=== PATIENT | female | born 1940 | race Hispanic/Latino ===

== ENCOUNTER 2022-01-03 15:20 | Outpatient (CLI) | payer MEDICARE | END 2022-01-03 15:21 | disposition home or self-care (01) | LOC: CSHRAD 15:20 | PROVIDERS: ATTEND Family Medicine | DX: S82.001A Unspecified fracture of right patella, initial encounter for closed fracture (principal); W10.8XXA Fall (on) (from) other stairs and steps, initial encounter ==

== ENCOUNTER 2023-01-10 10:19 | Inpatient (IN) | payer MEDICARE ==
[2023-01-10] MEDS ORDERED: Diltiazem 125 MG/25 ML SDV ONE (10:56)
[2023-01-10 11:23] LABS: #Eosinphils 0.1 10x3/uL (0.0-0.5); #Monocytes 0.8 10x3/uL (0.0-1.1); #Neutrophils 3.1 10x3/uL (1.5-8.4); %Basophils 0.2 % (0.0-2.0); %Eosinophils 1.9 % (0.0-6.0); %Monocytes 13.3 % (0.0-10.0); %Neutrophils 53.3 % (40.0-75.0); Hemoglobin 11.5 g/dL (12.0-15.5); Mean Corpuscular HGB CONC 33.2 g/dL (32.0-36.0); Mean Corpuscular Hemoglobin 27.5 pg (27.0-33.0); Mean Corpuscular Volume 82.8 fl (81.6-98.3); Mean Platelet Volume 12.4 fl (7.4-10.4); Platelet Count 149 10x3/uL (150-450); RBC Distribution Width 17.3 % (11.5-14.5); Red Blood Cell (RBC) Count 4.18 10x6/uL (3.90-5.03); White Blood Cell (WBC) Count 5.8 10x3/uL (3.5-10.5)
[2023-01-10 11:31] LABS: ALT (SGPT) 20 U/L (8-55); AST (SGOT) 29 U/L (5-34); Albumin 2.9 g/dL (3.4-4.8); Alkaline Phosphatase 99 U/L (40-110); Anion Gap 17 mmol/L (10-20); BUN (Urea Nitrogen) 25 mg/dL (9.8-20.1); Bilirubin, Total 1.7 mg/dL (0.2-1.2); Calc. Creatinine Clearance 0 mL/min (70-130); Calcium 8.5 mg/dL (7.8-10.44); Carbon Dioxide 20 mmol/L (23-31); Chloride 100 mmol/L (98-107); Estimated GFR 34; Globulin 3.4 g/dL (2.4-3.5); Glucose 107 mg/dL (83-110); Potassium 4.7 mmol/L (3.5-5.1); Protein, Total 6.3 g/dL (5.8-8.1); Sodium 132 mmol/L (136-145)
[2023-01-10 11:54] LABS: CKMB 3.2 ng/mL (0-6.6)
[2023-01-10] MEDS ORDERED: Digoxin 0.5 MG/2 ML AMP ONE (12:49)
[2023-01-10 14:35] LABS: Troponin I 0.073 ng/mL (< 0.028)
[2023-01-10 15:15] VITALS: BMI 21.7
[2023-01-10] MEDS ORDERED: Acetaminophen 650 MG Suppository PR PRN (15:26)
[2023-01-10] MEDS ORDERED: Acetaminophen 325 MG TAB PO PRN (15:26)
[2023-01-10] MEDS ORDERED: Ondansetron ODT 4 MG TAB PO PRN (15:26)
[2023-01-10] MEDS ORDERED: Ondansetron PF 4 MG/2 ML Vial IVP PRN (15:26)
[2023-01-10] MEDS ORDERED: Metoclopramide HCl 10 MG/2 ML VIAL IVP PRN (16:29)
[2023-01-10 18:09] LABS: Troponin I 0.087 ng/mL (< 0.028)
[2023-01-10] MEDS ORDERED: Carvedilol 6.25 MG TAB ONE (18:29)
[2023-01-10] MEDS ORDERED: Digoxin 0.125 MG TAB PO SCH (18:30)
[2023-01-10] MEDS: cefTRIAXone\\ROCEPHIN 1 GM in Sodium Chloride 0.9% 100 ML IVPB SCH (18:38)
[2023-01-10] MEDS: Carvedilol 6.25 MG TAB PO SCH (18:40)
[2023-01-10] MEDS: Sacubitril 24MG/Valsartan 26 MG TAB PO SCH (20:47)
[2023-01-10] MEDS: Doxycycline 100 MG CAP PO SCH (20:48)
[2023-01-10] MEDS: Atorvastatin Calcium 20 MG TAB PO SCH (20:48)
[2023-01-10] MEDS: Apixaban 2.5 MG TAB PO SCH (20:48)
[2023-01-10] MEDS ORDERED: Furosemide 20 MG/2 ML VIAL SLOW IVP SCH (21:00)
[2023-01-10] MEDS ORDERED: Digoxin 0.5 MG/2 ML AMP SLOW IVP SCH (21:00)
[2023-01-11 05:45] LABS: #Eosinphils 0.1 10x3/uL (0.0-0.5); #Monocytes 0.7 10x3/uL (0.0-1.1); #Neutrophils 3.9 10x3/uL (1.5-8.4); %Basophils 0.2 % (0.0-2.0); %Eosinophils 2.1 % (0.0-6.0); %Lymphocytes 23.4 % (18.0-47.0); %Monocytes 11.6 % (0.0-10.0); %Neutrophils 62.5 % (40.0-75.0); Hemoglobin 11.3 g/dL (12.0-15.5); Mean Corpuscular HGB CONC 33.8 g/dL (32.0-36.0); Mean Corpuscular Hemoglobin 27.6 pg (27.0-33.0); Mean Corpuscular Volume 81.7 fl (81.6-98.3); Mean Platelet Volume 12.5 fl (7.4-10.4); Platelet Count 126 10x3/uL (150-450); RBC Distribution Width 17.1 % (11.5-14.5); Red Blood Cell (RBC) Count 4.09 10x6/uL (3.90-5.03); White Blood Cell (WBC) Count 6.2 10x3/uL (3.5-10.5)
[2023-01-11 05:58] LABS: ALT (SGPT) 17 U/L (8-55); AST (SGOT) 26 U/L (5-34); Albumin 2.5 g/dL (3.4-4.8); Alkaline Phosphatase 89 U/L (40-110); Anion Gap 17 mmol/L (10-20); BUN (Urea Nitrogen) 28 mg/dL (9.8-20.1); Bilirubin, Total 1.3 mg/dL (0.2-1.2); Calc. Creatinine Clearance 25 mL/min (70-130); Carbon Dioxide 20 mmol/L (23-31); Chloride 102 mmol/L (98-107); Estimated GFR 38; Globulin 3.3 g/dL (2.4-3.5); Glucose 104 mg/dL (83-110); Protein, Total 5.8 g/dL (5.8-8.1); Sodium 135 mmol/L (136-145)
[2023-01-11] MEDS: Carvedilol 6.25 MG TAB PO SCH (08:22)
[2023-01-11] MEDS: Sacubitril 24MG/Valsartan 26 MG TAB PO SCH ×2 (08:22→22:20)
[2023-01-11] MEDS: Doxycycline 100 MG CAP PO SCH ×2 (08:23→22:21)
[2023-01-11] MEDS: Apixaban 2.5 MG TAB PO SCH ×2 (08:23→22:21)
[2023-01-11] MEDS ORDERED: Digoxin 0.125 MG TAB PO SCH (09:00)
[2023-01-11] MEDS: Furosemide 40 MG/4 ML VIAL SLOW IVP SCH (13:00)
[2023-01-11] MEDS: Carvedilol 12.5 MG TAB PO SCH (16:53)
[2023-01-11] MEDS: cefTRIAXone\\ROCEPHIN 1 GM in Sodium Chloride 0.9% 100 ML IVPB SCH (17:56)
[2023-01-11] MEDS: Atorvastatin Calcium 20 MG TAB PO SCH (22:21)
[2023-01-12 05:28] LABS: #Monocytes 0.7 10x3/uL (0.0-1.1); #Neutrophils 4.9 10x3/uL (1.5-8.4); %Basophils 0.3 % (0.0-2.0); %Lymphocytes 19.4 % (18.0-47.0); %Monocytes 10.5 % (0.0-10.0); %Neutrophils 69.5 % (40.0-75.0); Hemoglobin 11.5 g/dL (12.0-15.5); Mean Corpuscular HGB CONC 33.7 g/dL (32.0-36.0); Mean Corpuscular Hemoglobin 27.4 pg (27.0-33.0); Mean Corpuscular Volume 81.4 fl (81.6-98.3); Mean Platelet Volume 12.7 fl (7.4-10.4); Platelet Count 132 10x3/uL (150-450); RBC Distribution Width 17.6 % (11.5-14.5); Red Blood Cell (RBC) Count 4.19 10x6/uL (3.90-5.03)
[2023-01-12 05:40] LABS: Anion Gap 14 mmol/L (10-20); BUN (Urea Nitrogen) 28 mg/dL (9.8-20.1); Calc. Creatinine Clearance 27 mL/min (70-130); Calcium 7.6 mg/dL (7.8-10.44); Carbon Dioxide 24 mmol/L (23-31); Chloride 102 mmol/L (98-107); Estimated GFR 43; Glucose 106 mg/dL (83-110); Potassium 3.4 mmol/L (3.5-5.1); Sodium 137 mmol/L (136-145)
[2023-01-12] MEDS: Furosemide 40 MG/4 ML VIAL SLOW IVP SCH ×2 (05:42→13:13)
[2023-01-12] MEDS: Apixaban 2.5 MG TAB PO SCH ×2 (08:50→21:23)
[2023-01-12] MEDS: Doxycycline 100 MG CAP PO SCH ×2 (08:50→21:24)
[2023-01-12] MEDS: Sacubitril 24MG/Valsartan 26 MG TAB PO SCH ×2 (08:51→21:23)
[2023-01-12] MEDS: Carvedilol 12.5 MG TAB PO SCH ×2 (08:51→17:54)
[2023-01-12] MEDS: Digoxin 0.125 MG TAB PO SCH (08:51)
[2023-01-12 16:41] LABS: Actual Bicarbonate (HCO3a) 24.4 mEq/L (22-28); Base Excess (BEa) 3.4 mEq/L (-2.0 to +3.0); CO2 Tension 27.1 mmHg (35.0-45.0); Calcium, Ionized (arterial) 1.03 mmol/L (1.12-1.30); Carboxyhemoglobin (COHb) 0.6 gm% (0.0-3.0); Hematocrit-ABG 40 % (36.0-47.0); Hemoglobin (Hb) 13.5 g/dL (12.0-16.0); Potassium - ABG Lab 3.11 mmol/L (3.70-5.30); Puncture Site RBA; pH, Arterial 7.572 (7.35-7.45)
[2023-01-12 16:44] LABS: ALV-art Gradient 56.855 mmHg (0-20)
[2023-01-12] MEDS ORDERED: Furosemide 20 MG/2 ML VIAL SLOW IVP SCH (17:00)
[2023-01-12] MEDS ORDERED: Electrolyte Replacement Protocol 1 EACH FS SCH (17:26)
[2023-01-12] MEDS ORDERED: Potassium Chloride 20 MEQ TAB PO SCH (17:30)
[2023-01-12] MEDS ORDERED: Calcium Carbonate 500 MG ChewTAB PO SCH (17:30)
[2023-01-12] MEDS: cefTRIAXone\\ROCEPHIN 1 GM in Sodium Chloride 0.9% 100 ML IVPB SCH (17:55)
[2023-01-12 19:18] LABS: Phosphorus 4.3 mg/dL (2.3-4.7)
[2023-01-12] MEDS: Atorvastatin Calcium 20 MG TAB PO SCH (21:23)
[2023-01-13 04:55] LABS: #Monocytes 0.6 10x3/uL (0.0-1.1); %Basophils 0.3 % (0.0-2.0); %Eosinophils 0.7 % (0.0-6.0); %Lymphocytes 19.9 % (18.0-47.0); %Monocytes 10.5 % (0.0-10.0); %Neutrophils 68.4 % (40.0-75.0); Hemoglobin 11.8 g/dL (12.0-15.5); Mean Corpuscular HGB CONC 33.8 g/dL (32.0-36.0); Mean Corpuscular Hemoglobin 27.4 pg (27.0-33.0); Mean Platelet Volume 12.4 fl (7.4-10.4); Platelet Count 125 10x3/uL (150-450); RBC Distribution Width 17.6 % (11.5-14.5); Red Blood Cell (RBC) Count 4.31 10x6/uL (3.90-5.03); White Blood Cell (WBC) Count 5.9 10x3/uL (3.5-10.5)
[2023-01-13 04:59] LABS: Anion Gap 11 mmol/L (10-20); BUN (Urea Nitrogen) 24 mg/dL (9.8-20.1); Calc. Creatinine Clearance 30 mL/min (70-130); Calcium 7.5 mg/dL (7.8-10.44); Carbon Dioxide 29 mmol/L (23-31); Chloride 103 mmol/L (98-107); Estimated GFR 49; Glucose 107 mg/dL (83-110); Potassium 3.4 mmol/L (3.5-5.1); Sodium 140 mmol/L (136-145)
[2023-01-13 05:22] LABS: Magnesium 1.7 mg/dL (1.6-2.6)
[2023-01-13] MEDS ORDERED: Potassium Chloride 20 MEQ TAB PO SCH (06:00)
[2023-01-13] MEDS ORDERED: Magnesium 2 GM/50 ML(in water) 2 GM in Premix Bag 1 BAG IVPB SCH ×4 (06:00→12:30)
[2023-01-13] MEDS: Furosemide 40 MG/4 ML VIAL SLOW IVP SCH (06:42)
[2023-01-13 08:20] LABS: ALT (SGPT) 15 U/L (8-55); AST (SGOT) 23 U/L (5-34); Albumin 2.3 g/dL (3.4-4.8); Alkaline Phosphatase 79 U/L (40-110); Bilirubin, Direct 0.4 mg/dL (0.1-0.3); Bilirubin, Total 0.6 mg/dL (0.2-1.2); Protein, Total 5.2 g/dL (5.8-8.1)
[2023-01-13] MEDS: Sacubitril 24MG/Valsartan 26 MG TAB PO SCH ×2 (09:04→20:15)
[2023-01-13] MEDS: Apixaban 2.5 MG TAB PO SCH ×2 (09:04→20:15)
[2023-01-13] MEDS: Digoxin 0.125 MG TAB PO SCH (09:05)
[2023-01-13] MEDS: Carvedilol 12.5 MG TAB PO SCH ×2 (09:05→16:12)
[2023-01-13] MEDS: Doxycycline 100 MG CAP PO SCH ×2 (09:07→20:15)
[2023-01-13] MEDS: Atorvastatin Calcium 20 MG TAB PO SCH (20:15)
[2023-01-14 04:31] LABS: #Eosinphils 0.1 10x3/uL (0.0-0.5); #Monocytes 0.8 10x3/uL (0.0-1.1); #Neutrophils 3.5 10x3/uL (1.5-8.4); %Basophils 0.5 % (0.0-2.0); %Eosinophils 1.2 % (0.0-6.0); %Lymphocytes 28.1 % (18.0-47.0); %Monocytes 12.7 % (0.0-10.0); %Neutrophils 57.3 % (40.0-75.0); Hemoglobin 11.6 g/dL (12.0-15.5); Mean Corpuscular HGB CONC 33.4 g/dL (32.0-36.0); Mean Corpuscular Hemoglobin 27.6 pg (27.0-33.0); Mean Corpuscular Volume 82.5 fl (81.6-98.3); Mean Platelet Volume 11.5 fl (7.4-10.4); Platelet Count 126 10x3/uL (150-450); RBC Distribution Width 17.6 % (11.5-14.5); Red Blood Cell (RBC) Count 4.28 10x6/uL (3.90-5.03); White Blood Cell (WBC) Count 5.9 10x3/uL (3.5-10.5)
[2023-01-14 04:44] LABS: Anion Gap 10 mmol/L (10-20); BUN (Urea Nitrogen) 20 mg/dL (9.8-20.1); Calc. Creatinine Clearance 34 mL/min (70-130); Calcium 7.5 mg/dL (7.8-10.44); Carbon Dioxide 33 mmol/L (23-31); Chloride 100 mmol/L (98-107); Estimated GFR 57; Glucose 96 mg/dL (83-110); Magnesium 2.2 mg/dL (1.6-2.6); Potassium 3.3 mmol/L (3.5-5.1); Sodium 140 mmol/L (136-145)
[2023-01-14] MEDS ORDERED: Furosemide 40 MG TAB PO SCH (07:30)
[2023-01-14] MEDS ORDERED: Potassium Chloride 20 MEQ TAB PO SCH ×4 (08:00→12:45)
[2023-01-14] MEDS: Carvedilol 12.5 MG TAB PO SCH (08:30)
[2023-01-14] MEDS: Digoxin 0.125 MG TAB PO SCH (08:30)
[2023-01-14] MEDS: Sacubitril 24MG/Valsartan 26 MG TAB PO SCH (08:30)
[2023-01-14] MEDS: Apixaban 2.5 MG TAB PO SCH (08:30)
[2023-01-14] MEDS: Doxycycline 100 MG CAP PO SCH (08:31)
[2023-01-14 12:20] LABS: Potassium 3.1 mmol/L (3.5-5.1)
[2023-01-14 12:35] VITALS: BP 93/55; TEMP 97.6
== END 2023-01-14 12:45 | disposition home health service (06) | DRG 308 ==
LOC: CSHERS 10:19 → CSHERHOLD 12:51 → CSHTELE 13:54
PROVIDERS: ADMIT Internal Medicine; ATTEND Internal Medicine
PROC: 4A133R1 Monitoring of Arterial Saturation, Peripheral, Percutaneous Approach (ICD-10-PCS; principal; 2023-01-12)
DX: I48.19 Other persistent atrial fibrillation (principal); I50.23 Acute on chronic systolic (congestive) heart failure; J18.9 Pneumonia, unspecified organism; J96.01 Acute respiratory failure with hypoxia; N17.9 Acute kidney failure, unspecified; I11.0 Hypertensive heart disease with heart failure; I25.10 Atherosclerotic heart disease of native coronary artery without angina pectoris; R53.81 Other malaise; E78.5 Hyperlipidemia, unspecified; E87.6 Hypokalemia; E83.42 Hypomagnesemia; D69.6 Thrombocytopenia, unspecified; F03.90 Unspecified dementia, unspecified severity, without behavioral disturbance, psychotic disturbance, mood disturbance, and anxiety; Z88.7 Allergy status to serum and vaccine; Z79.899 Other long term (current) drug therapy; Z82.49 Family history of ischemic heart disease and other diseases of the circulatory system; Z98.890 Other specified postprocedural states
CPT/HCPCS: 36415; 36600; 71045; 80048; 80053; 80076; 82533; 82553; 82805; 83735; 83880; 84100; 84145; 84439; 84443; 84484; 85025; 93005; 93010; 94760; 94762; 96365; 96375; J0696; J1160; J1940; J2765; J3475; J3490

== ENCOUNTER 2023-02-13 20:15 | Inpatient (IN) | payer MEDICARE ==
[2023-02-13] MEDS ORDERED: Acetaminophen 325 MG TAB PO PRN (20:43)
[2023-02-13] MEDS ORDERED: Guaifenesin DM 100-10/5 ML UDCUP PO PRN (20:43)
[2023-02-13] MEDS ORDERED: Calcium Carbonate 500 MG ChewTAB PO PRN (20:43)
[2023-02-13] MEDS ORDERED: Ondansetron PF 4 MG/2 ML Vial IVP PRN (20:43)
[2023-02-13] MEDS ORDERED: Melatonin 3 MG TAB PO PRN (20:45)
[2023-02-13] MEDS ORDERED: Famotidine/PF 20 mg/2ml Vial SLOW IVP SCH (21:00)
[2023-02-13] MEDS: Sacubitril 24MG/Valsartan 26 MG TAB PO SCH (21:19)
[2023-02-13] MEDS: Apixaban 2.5 MG TAB PO SCH (21:19)
[2023-02-13] MEDS: Atorvastatin Calcium 20 MG TAB PO SCH (21:19)
[2023-02-13 22:19] LABS: Bilirubin Neg (Negative); Blood, Urine 50 (Negative); Glucose, Urine (Dipstick) Normal (Negative); Ketone, Urine Negative (Negative); Leukocyte 500 (Negative); Nitrite Negative (Negative); Protein, Urine (Dipstick) 15 mg/dl (Neg-Trace)
[2023-02-13 22:25] LABS: Clarity Cloudy (Clear)
[2023-02-13 22:29] LABS: Bacteria/HPF 2+ HPF (None Seen); RBC/HPF 0-3 HPF (0-3); Squamous Epithelial 0-3 HPF (0-3)
[2023-02-13] MEDS: cefTRIAXone\\ROCEPHIN 1 GM in Sodium Chloride 0.9% 100 ML IVPB SCH (23:39)
[2023-02-14 05:09] LABS: #Eosinphils 0.1 10x3/uL (0.0-0.5); #Monocytes 0.5 10x3/uL (0.0-1.1); #Neutrophils 2.5 10x3/uL (1.5-8.4); %Basophils 0.6 % (0.0-2.0); %Eosinophils 1.8 % (0.0-6.0); %Lymphocytes 35.1 % (18.0-47.0); %Neutrophils 51.5 % (40.0-75.0); Hemoglobin 12.1 g/dL (12.0-15.5); Mean Corpuscular HGB CONC 33.3 g/dL (32.0-36.0); Mean Corpuscular Hemoglobin 27.6 pg (27.0-33.0); Mean Corpuscular Volume 82.9 fl (81.6-98.3); Mean Platelet Volume 11.8 fl (7.4-10.4); Platelet Count 166 10x3/uL (150-450); RBC Distribution Width 20.2 % (11.5-14.5); Red Blood Cell (RBC) Count 4.38 10x6/uL (3.90-5.03); White Blood Cell (WBC) Count 4.9 10x3/uL (3.5-10.5)
[2023-02-14 05:20] LABS: Anion Gap 13 mmol/L (10-20); BUN (Urea Nitrogen) 21 mg/dL (9.8-20.1); Calc. Creatinine Clearance 42 mL/min (70-130); Calcium 8.4 mg/dL (7.8-10.44); Carbon Dioxide 27 mmol/L (23-31); Chloride 101 mmol/L (98-107); Estimated GFR 83; Glucose 80 mg/dL (83-110); Magnesium 1.7 mg/dL (1.6-2.6); Potassium 3.5 mmol/L (3.5-5.1); Sodium 137 mmol/L (136-145)
[2023-02-14] MEDS: Digoxin 0.125 MG TAB PO SCH (09:08)
[2023-02-14] MEDS: Apixaban 2.5 MG TAB PO SCH ×2 (09:08→20:20)
[2023-02-14] MEDS: Furosemide 20 MG/2 ML VIAL SLOW IVP SCH (09:10)
[2023-02-14] MEDS: Potassium Chloride 20 MEQ TAB PO SCH (09:10)
[2023-02-14] MEDS: Carvedilol 12.5 MG TAB PO SCH ×2 (09:10→17:26)
[2023-02-14] MEDS: Sacubitril 24MG/Valsartan 26 MG TAB PO SCH ×2 (09:10→20:20)
[2023-02-14] MEDS: Metoclopramide HCl 10 MG/2 ML VIAL IVP SCH ×3 (12:05→23:24)
[2023-02-14 12:48] LABS: Digoxin 0.62 ng/mL (0.8-2.0)
[2023-02-14] MEDS: Atorvastatin Calcium 20 MG TAB PO SCH (20:20)
[2023-02-14] MEDS ORDERED: Famotidine/PF 20 mg/2ml Vial SLOW IVP SCH (21:00)
[2023-02-14] MEDS: cefTRIAXone\\ROCEPHIN 1 GM in Sodium Chloride 0.9% 100 ML IVPB SCH (23:24)
[2023-02-15 01:57] VITALS: BMI 19.4
[2023-02-15] MEDS: Metoclopramide HCl 10 MG/2 ML VIAL IVP SCH (05:27)
[2023-02-15] MEDS: Carvedilol 12.5 MG TAB PO SCH (09:25)
[2023-02-15] MEDS: Furosemide 20 MG/2 ML VIAL SLOW IVP SCH (09:25)
[2023-02-15] MEDS: Pantoprazole 40 MG VIAL IVP SCH ×2 (09:25→10:39)
[2023-02-15] MEDS: Digoxin 0.125 MG TAB PO SCH (09:25)
[2023-02-15] MEDS: Sacubitril 24MG/Valsartan 26 MG TAB PO SCH (09:25)
[2023-02-15] MEDS: Potassium Chloride 20 MEQ TAB PO SCH (09:25)
[2023-02-15] MEDS: Apixaban 2.5 MG TAB PO SCH (09:26)
[2023-02-15 13:09] VITALS: BP 104/54; TEMP 97.5
== END 2023-02-15 17:11 | disposition home or self-care (01) | DRG 291 ==
LOC: CSHTELE 20:15
PROVIDERS: ADMIT Student in an Organized Health Care Education/Training Program; ATTEND Internal Medicine
DX: I11.0 Hypertensive heart disease with heart failure (principal); I50.23 Acute on chronic systolic (congestive) heart failure; I48.19 Other persistent atrial fibrillation; N39.0 Urinary tract infection, site not specified; R11.2 Nausea with vomiting, unspecified; R19.7 Diarrhea, unspecified; I42.0 Dilated cardiomyopathy; I25.10 Atherosclerotic heart disease of native coronary artery without angina pectoris; E78.5 Hyperlipidemia, unspecified; I34.0 Nonrheumatic mitral (valve) insufficiency; Z79.01 Long term (current) use of anticoagulants; Z79.899 Other long term (current) drug therapy; Z82.49 Family history of ischemic heart disease and other diseases of the circulatory system; Z83.49 Family history of other endocrine, nutritional and metabolic diseases
CPT/HCPCS: 36415; 71045; 80048; 80053; 80162; 81001; 82550; 83690; 83735; 83880; 84443; 84484; 85025; 87077; 87086; 87186; 93005; 94760; 96374; C9113; J0696; J1940; J2765; J3490; S0028

== ENCOUNTER 2023-03-05 11:40 | Emergency (ER) | payer MEDICARE ==
[2023-03-05 14:42] LABS: #Eosinphils 0.5 10x3/uL (0.0-0.5); #Monocytes 0.6 10x3/uL (0.0-1.1); #Neutrophils 3.5 10x3/uL (1.5-8.4); %Basophils 0.5 % (0.0-2.0); %Eosinophils 8.3 % (0.0-6.0); %Lymphocytes 16.9 % (18.0-47.0); %Monocytes 11.5 % (0.0-10.0); %Neutrophils 62.6 % (40.0-75.0); Hematocrit 35.2 % (34.9-44.5); Hemoglobin 11.7 g/dL (12.0-15.5); Mean Corpuscular HGB CONC 33.2 g/dL (32.0-36.0); Mean Corpuscular Hemoglobin 27.9 pg (27.0-33.0); Mean Corpuscular Volume 83.8 fl (81.6-98.3); Mean Platelet Volume 11.4 fl (7.4-10.4); Platelet Count 155 10x3/uL (150-450); RBC Distribution Width 21.5 % (11.5-14.5); White Blood Cell (WBC) Count 5.6 10x3/uL (3.5-10.5)
[2023-03-05 15:04] LABS: ALT (SGPT) 12 U/L (8-55); AST (SGOT) 22 U/L (5-34); Albumin 2.9 g/dL (3.4-4.8); Alkaline Phosphatase 86 U/L (40-110); Anion Gap 14 mmol/L (10-20); BUN (Urea Nitrogen) 27 mg/dL (9.8-20.1); Bilirubin, Total 0.6 mg/dL (0.2-1.2); Calc. Creatinine Clearance 0 mL/min (70-130); Calcium 7.9 mg/dL (7.8-10.44); Carbon Dioxide 19 mmol/L (23-31); Chloride 104 mmol/L (98-107); Estimated GFR 34; Globulin 3.3 g/dL (2.4-3.5); Glucose 82 mg/dL (83-110); Protein, Total 6.2 g/dL (5.8-8.1); Sodium 133 mmol/L (136-145)
[2023-03-05 15:24] LABS: CKMB 1.7 ng/mL (0-6.6)
[2023-03-05 16:42] LABS: Troponin I 0.024 ng/mL (< 0.028)
== END 2023-03-05 17:53 | disposition home or self-care (01) ==
LOC: CSHERS 11:40
DX: I11.0 Hypertensive heart disease with heart failure (principal); I50.31 Acute diastolic (congestive) heart failure; I48.91 Unspecified atrial fibrillation; Z99.81 Dependence on supplemental oxygen; Z79.01 Long term (current) use of anticoagulants; Z79.899 Other long term (current) drug therapy
CPT/HCPCS: 36415; 71045; 80053; 82553; 83880; 84484; 85025; 93005

== ENCOUNTER 2023-03-13 18:53 | Inpatient (IN) | payer MEDICARE ==
[2023-03-13 20:08] LABS: #Eosinphils 0.4 10x3/uL (0.0-0.5); #Monocytes 0.6 10x3/uL (0.0-1.1); #Neutrophils 3.4 10x3/uL (1.5-8.4); %Basophils 0.4 % (0.0-2.0); %Eosinophils 7.6 % (0.0-6.0); %Lymphocytes 17.5 % (18.0-47.0); %Monocytes 11.5 % (0.0-10.0); %Neutrophils 62.8 % (40.0-75.0); Hematocrit 33.7 % (34.9-44.5); Hemoglobin 11.4 g/dL (12.0-15.5); Mean Corpuscular HGB CONC 33.8 g/dL (32.0-36.0); Mean Corpuscular Hemoglobin 28.1 pg (27.0-33.0); Mean Corpuscular Volume 83.2 fl (81.6-98.3); Mean Platelet Volume 11.1 fl (7.4-10.4); Platelet Count 145 10x3/uL (150-450); RBC Distribution Width 21.3 % (11.5-14.5); Red Blood Cell (RBC) Count 4.05 10x6/uL (3.90-5.03); White Blood Cell (WBC) Count 5.4 10x3/uL (3.5-10.5)
[2023-03-13 20:19] LABS: INR-International Normal Ratio 1.2; PTT 36.5 sec (22.0-33.0); Prothrombin Time 12.4 sec (9.5-12.1)
[2023-03-13 20:23] LABS: ALT (SGPT) 93 U/L (8-55); AST (SGOT) 125 U/L (5-34); Albumin 2.9 g/dL (3.4-4.8); Alkaline Phosphatase 94 U/L (40-110); Anion Gap 12 mmol/L (10-20); BUN (Urea Nitrogen) 32 mg/dL (9.8-20.1); Bilirubin, Total 0.7 mg/dL (0.2-1.2); CK (CPK) 50 U/L (29-168); Calc. Creatinine Clearance 0 mL/min (70-130); Carbon Dioxide 16 mmol/L (23-31); Chloride 105 mmol/L (98-107); Estimated GFR 55; Globulin 3.4 g/dL (2.4-3.5); Glucose 111 mg/dL (83-110); Lipase 53 U/L (8-78); Magnesium 1.7 mg/dL (1.6-2.6); Potassium 3.3 mmol/L (3.5-5.1); Protein, Total 6.3 g/dL (5.8-8.1); Sodium 130 mmol/L (136-145)
[2023-03-13 20:27] LABS: Troponin I 0.027 ng/mL (< 0.028)
[2023-03-13 20:47] LABS: Bilirubin Neg (Negative); Blood, Urine Negative (Negative); Clarity Clear (Clear); Glucose, Urine (Dipstick) Normal (Negative); Ketone, Urine Negative (Negative); Leukocyte Negative (Negative); Nitrite Negative (Negative); Protein, Urine (Dipstick) Negative (Neg-Trace); Urobilinogen Normal mg/dL (Less than 2)
[2023-03-13 20:55] LABS: Bacteria/HPF 1+ HPF (None Seen); CAUTI Indications for Culture Pelvic or flank pain; Mucous/LPF 1+ LPF (<2+); RBC/HPF None Seen HPF (0-3); Squamous Epithelial 0-3 HPF (0-3); Transitional Epithelial 0-3 HPF (None Seen); Urine Culture Reflex No No; WBC/HPF 0-3 HPF (0-3)
[2023-03-13] MEDS ORDERED: Potassium Chloride 20 MEQ/100 ML PREMIX BAG ONE (21:42)
[2023-03-14] MEDS ORDERED: Potassium Chloride 20 MEQ/100 ML PREMIX BAG ONE (00:02)
[2023-03-14] MEDS ORDERED: Ondansetron PF 4 MG/2 ML Vial IVP PRN (00:54)
[2023-03-14] MEDS ORDERED: Calcium Carbonate 500 MG ChewTAB PO PRN (00:54)
[2023-03-14] MEDS ORDERED: Acetaminophen 325 MG TAB PO PRN (00:54)
[2023-03-14] MEDS ORDERED: Lactated Ringer's 500 ML IV SCH (02:00)
[2023-03-14 02:10] LABS: Digoxin 1.82 ng/mL (0.8-2.0)
[2023-03-14 02:55] VITALS: BMI 19.8
[2023-03-14 04:18] LABS: Campy jejuni + coli by PCR Negative (Negative); STEC Shiga Toxin 1+2 Negative (Negative); Salmonella spp. by PCR Negative (Negative); Shigella spp + EIEC by PCR Negative (Negative)
[2023-03-14 04:38] LABS: ALT (SGPT) 97 U/L (8-55); AST (SGOT) 128 U/L (5-34); Albumin 2.7 g/dL (3.4-4.8); Alkaline Phosphatase 90 U/L (40-110); Bilirubin, Direct 0.4 mg/dL (0.1-0.3); Bilirubin, Total 0.7 mg/dL (0.2-1.2); CK (CPK) 54 U/L (29-168); Protein, Total 5.6 g/dL (5.8-8.1)
[2023-03-14 04:40] LABS: Anion Gap 14 mmol/L (10-20); BUN (Urea Nitrogen) 31 mg/dL (9.8-20.1); Calc. Creatinine Clearance 36 mL/min (70-130); Calcium 7.8 mg/dL (7.8-10.44); Carbon Dioxide 14 mmol/L (23-31); Chloride 109 mmol/L (98-107); Estimated GFR 70; Glucose 82 mg/dL (83-110); Magnesium 1.6 mg/dL (1.6-2.6); Potassium 3.6 mmol/L (3.5-5.1); Sodium 133 mmol/L (136-145)
[2023-03-14] MEDS: Carvedilol 12.5 MG TAB PO SCH ×2 (09:51→16:34)
[2023-03-14] MEDS: Sacubitril 24MG/Valsartan 26 MG TAB PO SCH ×2 (09:51→21:07)
[2023-03-14] MEDS: Multivitamin W/ Minerals 1 TAB PO SCH (09:51)
[2023-03-14] MEDS: Apixaban 2.5 MG TAB PO SCH ×2 (09:51→21:07)
[2023-03-14 10:15] LABS: HBSAg Index 0.23 S/CO (0-0.99); Hep B Surf Ag Non-Reactive S/CO (NonReactive)
[2023-03-14] MEDS ORDERED: Magnesium Sulfate 4 GM in Sodium Chloride 0.9% 250 ML 250 ML IVPB SCH (11:30)
[2023-03-14] MEDS: Magnesium 2 GM/50 ML(in water) 2 GM in Premix Bag 1 BAG IVPB SCH (13:18)
[2023-03-14 14:33] LABS: HBCM Index 0.08 S/CO (0-0.79); Hep A IgM AB Non-Reactive S/CO (NonReactive); Hep A IgM S/CO 0.29 S/CO (0-0.79); Hep C IgG Ab Non-Reactive S/CO (NonReactive); Hep C Index 0.28 S/CO (0-0.79); Hepatitis B Core IgM Abs Non-Reactive S/CO (NonReactive)
[2023-03-14] MEDS ORDERED: Atorvastatin Calcium 20 MG TAB PO SCH (21:00)
[2023-03-14] MEDS: Loperamide HCl 2 MG CAP PO SCH (21:07)
[2023-03-15 04:35] LABS: #Eosinphils 0.5 10x3/uL (0.0-0.5); #Monocytes 0.5 10x3/uL (0.0-1.1); %Basophils 0.6 % (0.0-2.0); %Eosinophils 10.6 % (0.0-6.0); %Lymphocytes 16.9 % (18.0-47.0); %Monocytes 9.8 % (0.0-10.0); %Neutrophils 61.9 % (40.0-75.0); Hematocrit 32.1 % (34.9-44.5); Hemoglobin 10.9 g/dL (12.0-15.5); Mean Corpuscular Hemoglobin 28.5 pg (27.0-33.0); Mean Platelet Volume 11.1 fl (7.4-10.4); Platelet Count 142 10x3/uL (150-450); RBC Distribution Width 21.3 % (11.5-14.5); Red Blood Cell (RBC) Count 3.82 10x6/uL (3.90-5.03); White Blood Cell (WBC) Count 4.9 10x3/uL (3.5-10.5)
[2023-03-15 04:51] LABS: Anion Gap 12 mmol/L (10-20); BUN (Urea Nitrogen) 23 mg/dL (9.8-20.1); Calc. Creatinine Clearance 45 mL/min (70-130); Calcium 7.9 mg/dL (7.8-10.44); Carbon Dioxide 14 mmol/L (23-31); Chloride 113 mmol/L (98-107); Estimated GFR 87; Glucose 119 mg/dL (83-110); Potassium 2.8 mmol/L (3.5-5.1); Sodium 136 mmol/L (136-145)
[2023-03-15] MEDS: Carvedilol 12.5 MG TAB PO SCH (08:05)
[2023-03-15] MEDS: Multivitamin W/ Minerals 1 TAB PO SCH (09:18)
[2023-03-15] MEDS: Loperamide HCl 2 MG CAP PO SCH ×5 (09:18→21:07)
[2023-03-15] MEDS: Sacubitril 24MG/Valsartan 26 MG TAB PO SCH ×2 (09:19→21:07)
[2023-03-15] MEDS: Apixaban 2.5 MG TAB PO SCH ×2 (09:19→21:07)
[2023-03-15] MEDS ORDERED: Potassium Chloride 20 MEQ in Premix Bag 1 BAG IVPB SCH (13:00)
[2023-03-15] MEDS: Potassium Chloride 20 MEQ TAB PO SCH ×2 (15:27→18:30)
[2023-03-15 18:17] LABS: Potassium 3.1 mmol/L (3.5-5.1)
[2023-03-16 04:32] LABS: Anion Gap 11 mmol/L (10-20); BUN (Urea Nitrogen) 20 mg/dL (9.8-20.1); Calc. Creatinine Clearance 49 mL/min (70-130); Calcium 7.9 mg/dL (7.8-10.44); Carbon Dioxide 14 mmol/L (23-31); Chloride 115 mmol/L (98-107); Estimated GFR 88; Glucose 89 mg/dL (83-110); Potassium 3.9 mmol/L (3.5-5.1); Sodium 136 mmol/L (136-145)
[2023-03-16 04:38] LABS: #Basophils 0.1 10x3/uL (0.0-0.2); #Monocytes 0.7 10x3/uL (0.0-1.1); #Neutrophils 3.4 10x3/uL (1.5-8.4); %Basophils 0.8 % (0.0-2.0); %Lymphocytes 20.3 % (18.0-47.0); %Monocytes 10.7 % (0.0-10.0); %Neutrophils 52.9 % (40.0-75.0); Hematocrit 34.3 % (34.9-44.5); Hemoglobin 11.5 g/dL (12.0-15.5); Mean Corpuscular HGB CONC 33.5 g/dL (32.0-36.0); Mean Corpuscular Hemoglobin 28.4 pg (27.0-33.0); Mean Corpuscular Volume 84.7 fl (81.6-98.3); Mean Platelet Volume 10.3 fl (7.4-10.4); Platelet Count 154 10x3/uL (150-450); RBC Distribution Width 22.2 % (11.5-14.5); Red Blood Cell (RBC) Count 4.05 10x6/uL (3.90-5.03); White Blood Cell (WBC) Count 6.5 10x3/uL (3.5-10.5)
[2023-03-16] MEDS: Multivitamin W/ Minerals 1 TAB PO SCH (09:37)
[2023-03-16] MEDS: PATIENT'S HOME MEDICATION PO SCH (09:37)
[2023-03-16] MEDS: Loperamide HCl 2 MG CAP PO SCH ×5 (09:37→21:01)
[2023-03-16] MEDS: Sacubitril 24MG/Valsartan 26 MG TAB PO SCH ×2 (09:38→21:01)
[2023-03-16] MEDS: Apixaban 2.5 MG TAB PO SCH ×2 (09:38→21:01)
[2023-03-16] MEDS ORDERED: Potassium Chloride 20 MEQ TAB PO SCH (13:00)
[2023-03-16] MEDS ORDERED: Saccharomyces boulardii 250 MG CAP PO SCH (13:00)
[2023-03-16] MEDS ORDERED: diphenhydrAMINE 25 MG CAP PO PRN (18:03)
[2023-03-16] MEDS ORDERED: Promethazine HCl 25 MG in Sodium Chloride 0.9% 50 ML IVPB PRN (18:06)
[2023-03-17 04:34] LABS: #Basophils 0.1 10x3/uL (0.0-0.2); #Eosinphils 1.4 10x3/uL (0.0-0.5); #Monocytes 0.7 10x3/uL (0.0-1.1); #Neutrophils 3.7 10x3/uL (1.5-8.4); %Basophils 0.8 % (0.0-2.0); %Eosinophils 18.9 % (0.0-6.0); %Lymphocytes 21.3 % (18.0-47.0); %Monocytes 8.8 % (0.0-10.0); %Neutrophils 49.9 % (40.0-75.0); Hematocrit 37.1 % (34.9-44.5); Mean Corpuscular HGB CONC 32.3 g/dL (32.0-36.0); Mean Corpuscular Hemoglobin 27.8 pg (27.0-33.0); Mean Corpuscular Volume 86.1 fl (81.6-98.3); Mean Platelet Volume 10.2 fl (7.4-10.4); Platelet Count 163 10x3/uL (150-450); RBC Distribution Width 22.9 % (11.5-14.5); Red Blood Cell (RBC) Count 4.31 10x6/uL (3.90-5.03); White Blood Cell (WBC) Count 7.4 10x3/uL (3.5-10.5)
[2023-03-17 04:47] LABS: Anion Gap 12 mmol/L (10-20); BUN (Urea Nitrogen) 22 mg/dL (9.8-20.1); Calc. Creatinine Clearance 47 mL/min (70-130); Calcium 8.1 mg/dL (7.8-10.44); Carbon Dioxide 14 mmol/L (23-31); Chloride 116 mmol/L (98-107); Estimated GFR 87; Glucose 74 mg/dL (83-110); Sodium 138 mmol/L (136-145)
[2023-03-17] MEDS: Apixaban 2.5 MG TAB PO SCH ×2 (08:24→20:12)
[2023-03-17] MEDS: Saccharomyces boulardii 250 MG CAP PO SCH (08:24)
[2023-03-17] MEDS: Sacubitril 24MG/Valsartan 26 MG TAB PO SCH ×2 (08:24→20:12)
[2023-03-17] MEDS: Loperamide HCl 2 MG CAP PO SCH ×6 (08:24→21:24)
[2023-03-17] MEDS: PATIENT'S HOME MEDICATION PO SCH (08:24)
[2023-03-17] MEDS: Multivitamin W/ Minerals 1 TAB PO SCH (08:25)
[2023-03-17] MEDS ORDERED: Ivabradine 5 MG TAB PO SCH (09:00)
[2023-03-17] MEDS: Carvedilol 3.125 MG TAB PO SCH (16:00)
[2023-03-17] MEDS ORDERED: Carvedilol 3.125 MG TAB PO SCH (17:00)
[2023-03-18 03:45] LABS: Anion Gap 13 mmol/L (10-20); BUN (Urea Nitrogen) 29 mg/dL (9.8-20.1); Calc. Creatinine Clearance 34 mL/min (70-130); Calcium 7.9 mg/dL (7.8-10.44); Carbon Dioxide 12 mmol/L (23-31); Chloride 113 mmol/L (98-107); Estimated GFR 66; Glucose 84 mg/dL (83-110); Potassium 3.9 mmol/L (3.5-5.1); Sodium 134 mmol/L (136-145)
[2023-03-18 03:46] LABS: #Basophils 0.1 10x3/uL (0.0-0.2); #Eosinphils 1.5 10x3/uL (0.0-0.5); #Monocytes 0.7 10x3/uL (0.0-1.1); #Neutrophils 4.8 10x3/uL (1.5-8.4); %Basophils 0.6 % (0.0-2.0); %Eosinophils 16.2 % (0.0-6.0); %Lymphocytes 23.1 % (18.0-47.0); %Monocytes 7.3 % (0.0-10.0); %Neutrophils 52.7 % (40.0-75.0); Mean Corpuscular HGB CONC 33.3 g/dL (32.0-36.0); Mean Corpuscular Hemoglobin 28.5 pg (27.0-33.0); Mean Corpuscular Volume 85.5 fl (81.6-98.3); Mean Platelet Volume 10.8 fl (7.4-10.4); Platelet Count 169 10x3/uL (150-450); Red Blood Cell (RBC) Count 4.21 10x6/uL (3.90-5.03); White Blood Cell (WBC) Count 9.1 10x3/uL (3.5-10.5)
[2023-03-18] MEDS: Carvedilol 3.125 MG TAB PO SCH (09:12)
[2023-03-18] MEDS: Sodium Chloride 0.9% 1,000 ML IV SCH (09:29)
[2023-03-18] MEDS: Saccharomyces boulardii 250 MG CAP PO SCH (09:45)
[2023-03-18] MEDS: Multivitamin W/ Minerals 1 TAB PO SCH (09:45)
[2023-03-18] MEDS: Apixaban 2.5 MG TAB PO SCH ×2 (09:46→20:35)
[2023-03-18] MEDS: PATIENT'S HOME MEDICATION PO SCH (09:46)
[2023-03-18] MEDS: Loperamide HCl 2 MG CAP PO SCH ×2 (09:54→20:35)
[2023-03-19] MEDS: Multivitamin W/ Minerals 1 TAB PO SCH (09:20)
[2023-03-19] MEDS: Apixaban 2.5 MG TAB PO SCH ×2 (09:20→22:02)
[2023-03-19] MEDS: Saccharomyces boulardii 250 MG CAP PO SCH (09:20)
[2023-03-19] MEDS: Loperamide HCl 2 MG CAP PO SCH ×2 (09:20→22:02)
[2023-03-19] MEDS: PATIENT'S HOME MEDICATION PO SCH (11:00)
[2023-03-19] MEDS: Sodium Chloride 0.9% 1,000 ML IV SCH (12:01)
[2023-03-20 07:24] VITALS: TEMP 97.6
[2023-03-20] MEDS: Saccharomyces boulardii 250 MG CAP PO SCH (08:17)
[2023-03-20] MEDS: Apixaban 2.5 MG TAB PO SCH (08:17)
[2023-03-20] MEDS: Loperamide HCl 2 MG CAP PO SCH (08:17)
[2023-03-20] MEDS: PATIENT'S HOME MEDICATION PO SCH (08:17)
[2023-03-20] MEDS: Multivitamin W/ Minerals 1 TAB PO SCH (08:17)
[2023-03-20] MEDS: Sodium Chloride 0.9% 1,000 ML IV SCH (08:56)
[2023-03-20 12:28] VITALS: BP 96/55
== END 2023-03-20 11:47 | disposition home or self-care (01) | DRG 394 ==
LOC: CSHERS 18:53 → CSHTELE 03-14 01:53 → OBSVTOIN 03-17 08:08
PROVIDERS: ADMIT Student in an Organized Health Care Education/Training Program; ATTEND Internal Medicine
DX: K52.1 Toxic gastroenteritis and colitis (principal); E44.0 Moderate protein-calorie malnutrition; E87.1 Hypo-osmolality and hyponatremia; I42.0 Dilated cardiomyopathy; E87.20 Acidosis, unspecified; R64 Cachexia; I48.19 Other persistent atrial fibrillation; I50.42 Chronic combined systolic (congestive) and diastolic (congestive) heart failure; Z68.1 Body mass index [BMI] 19.9 or less, adult; E87.6 Hypokalemia; I25.10 Atherosclerotic heart disease of native coronary artery without angina pectoris; E78.5 Hyperlipidemia, unspecified; I34.0 Nonrheumatic mitral (valve) insufficiency; E83.42 Hypomagnesemia; I11.0 Hypertensive heart disease with heart failure; R00.1 Bradycardia, unspecified; T36.95XA Adverse effect of unspecified systemic antibiotic, initial encounter; I95.9 Hypotension, unspecified; Y92.9 Unspecified place or not applicable; Z88.7 Allergy status to serum and vaccine; Z91.011 Allergy to milk products; Z79.01 Long term (current) use of anticoagulants; Z79.899 Other long term (current) drug therapy; Z98.890 Other specified postprocedural states
CPT/HCPCS: 36415; 51701; 51702; 71045; 74177; 80048; 80053; 80074; 80076; 80162; 81001; 82550; 83605; 83630; 83690; 83735; 83880; 84443; 84484; 85025; 85610; 85730; 87040; 87324; 87449; 87505; 93005; 93010; 93306; 96374; J2405; J2543; J3475; J3480; J3490; J7050; J7120; Q9967